=== PATIENT | female | born 1985 | race Two or more races ===

== ENCOUNTER 2025-05-09 16:07 | Emergency (ER) | payer SELFPAY ==
[~2025-05-09] VITALS: Ht 157.5 cm; Wt 95.8 kg
[2025-05-09 16:30] VITALS: BP 131/48; PULSE 100; RESP 14; TEMP 98.3; O2SAT 97
--- NOTE | 2025-05-09 16:42 | ED.PDOC ---
History of Present Illness EXP HPI Comments This is a 40 year old female presenting to the ED with chief complaint of post exposure. 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 Patient relays that the patient has no history except for autism. Patient denies any active bleeding at this time. Chief Complaint: Post Exposure Time Seen by MD: 16:40 Reviewed Notes: Nurses Notes, Medications, Allergies Allergies: Coded Allergies: NO KNOWN ALLERGIES (Unverified , 05/09/25) Information Source: Patient Mode of Arrival: Ambulatory Severity: Mild Severity Needlestick: Other (Mild) Timing: Minutes Duration: Since onset Prehospital treatment: None Location: Broken skin Exposed to: Blood Exposed by: Needlestick If needlestick: Gauge Treatment prior to arrival: Washing Source information: None Patient information: None Past Medical History PAST MEDICAL HISTORY: Denies Surgical History: Cholecystectomy, , Hysterectomy 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 History Family History Family History: Reviewed,noncontributory to illness Social History Smoker: Non-Smoker Alcohol: Denies ETOH Use Drugs: Denies Drug Use Lives In: Home Constitutional: denies: chills, diaphoresis, fatigue, fever, malaise, sweats, weakness, others EENTM: denies: blurred vision, double vision, ear bleeding, ear discharge, ear drainage, ear pain, ear ringing, eye pain, eye redness, hearing loss, mouth pain, mouth swelling, nasal discharge, nose bleeding, nose congestion, nose pain, photophobia, tearing, throat pain, throat swelling, voice changes, others Respiratory: denies: cough, hemoptysis, orthopnea, SOB at rest, shortness of breath, SOB with excertion, stridor, wheezing, others Cardiovascular: denies: chest pain, dizzy spells, diaphoresis, Dyspnea on exertion, edema, irregular heart beat, left arm pain, lightheadedness, palpitations, PND, syncope, others Gastrointestinal: denies: abdomen distended, abdominal pain, blood streaked bowels, constipated, diarrhea, dysphagia, difficulty swallowing, hematemesis, melena, nausea, poor appetite, poor fluid intake, rectal bleeding, rectal pain, vomiting, others Genitourinary: denies: abnormal vagina bleeding, burning, dyspareunia, dysuria, flank pain, frequency, hematuria, incontinence, pain, , vagina discharge, urgency, others Neurological: denies: dizziness, fainting, headache, left sided numbness, left sided weakness, numbness, paresthesia, pre-existing deficit, right sided numbness, right sided weakness, seizure, speech problems, tingling, tremors, weakness, others Musculoskeletal: denies: back pain, gout, joint pain, joint swelling, muscle pain, muscle stiffness, neck pain, others Integumetry: reports: others (Needle stick to left ring finger); denies: bruises, change in color, change in hair/nails, dryness, laceration, lesions, lumps, rash, wounds Allergic/Immunocompromised: denies: Difficulty Healing, Frequent Infections, Hives, Itching, others Hematologic/Lymphatic: denies: anemia, blood clots, easy bleeding, easy b ruising, swollen glands, others Endocrine: denies: excessive hunger, excessive sweating, excessive thirst, excessive urination, flushing, intolerance to cold, intolerance to heat, unexplained weight gain, unexplained weight loss, others Psychiatric: denies: anxiety, bipolar disorder, depression, hopeless, panic disorder, schizophrenia, sleepless, suicidal, others All Other Systems: Reviewed and Negative Physical Exam General Appearance: No Apparent Distress, Normal HEENT: Normal ENT Inspection, Pharynx Normal, TMs Normal Neck: Full Range of Motion, Non-Tender, Normal, Normal Inspection Respiratory: Chest Non-Tender, Lungs Clear, No Accessory Muscle Use, No Respiratory Distress, Normal Breath Sounds Cardiovascular: No Edema, No JVD, No Murmur, No Gallop, Normal Peripheral Pulses, Regular Rate/Rhythm Breast Exam: Deferred Gastrointestinal: No Organomegaly, Non Tender, No Pulsatile Mass, Normal Bowel Sounds, Soft Genitalia: Deferred Pelvic: Deferred Rectal: Deferred Extremities: No calf tenderness, Normal capillary refill, Normal inspection, Normal range of motion, Non-tender, No pedal edema Musculoskeletal : Apperance: Normal Neurologic: Alert, gardening manager II-XII nml as Tested, No Motor Deficits, Normal Affect, Normal Mood, No Sensory Deficits Cerebellar Function: Normal Reflexes: Normal Skin: Dry, Normal Color, Warm Lymphatic: No Adenopathy Was a procedure done? Was a procedure done?: No Differential Diagnosis (EXP) Differential Diagnosis: Body fluid exposure, Infect. Disease exposure, Needle stick exposure X-Ray, Labs, Meds, VS Vital Signs Date Time Temp Pulse Resp B/P (MAP) Pulse Ox O2 Delivery O2 Flow Rate FiO2 05/09/25 16:30 98.3 100 14 131/48 (75) 97 98.3 Time of 1ST Reevaluation: 17:39 Reevaluation 1ST: Unchanged Patient Education/Counseling: Diagnosis, Treatment Family Education/Counseling: No Family Present Comments pt was stuck by a used needle from a 7 year old, without infections. the stick is invisible now. pt is at low risk for infections and after discussing R/Bs of PEP, shared decision is to forego any PEP. post exposure labs are drawn and pt is stable to follow up with [facility] [place] Additional Information Reviewed patient's previous visit(s): None The following tests were ordered, and results were reviewed by me: Hep B, Hep C, HIV Additional information was gathered from interviewing the following independent historian: None I reviewed and agreed with the following test results read by other provider: None I discussed treatments and results with medical personnel and: Patient Comprehensive systems review obtained and negative except for what is stated in the HPI. Departure 1 Departure Time of Disposition: 16:54 Impression: Primary Impression: Needle stick injury of finger Disposition: 01 HOME / SELF CARE / HOMELESS Condition: Good Additional Instructions: follow up with [facility] [place] Discharged With: Self Critical Care Note Critical Care Time?: No Stability Stability form required: No Heart Score Heart Score: Heart Score Response (Comments) Value History N/A 0 EKG N/A 0 Age N/A 0 Risk Factors N/A 0 Troponin N/A 0 Total 0 I personally scribed for BENJAMIN CHOU MD ([email or web address]) on 05/09/25 at 16:42. Elec tronically submitted by Kee Wynne ([email or web address]). I personally scribed for BENJAMIN CHOU MD ([email or web address]) on 05/09/25 at 16:43. Electr onically submitted by Kee Wynne ([email or web address]). BENJAMIN CHOU MD May 09, 2025 16:42
--- NOTE | 2025-05-09 17:30 | DVH ---
Technique: Real-time ultrasound imaging of the abdomen was performed with grayscale and color Doppler . Indication: jaundice Comparison: None Findings: Liver measures 17.3 cm. It is increased in echogenicity and echotexture without focal mass. Portal v ein is normal in caliber and demonstrates normal hepatopetal flow. Gallbladder removed. The common bile duct measures 4 mm. No intrahepatic biliary ductal dilatation. The right kidney measures 12.6 cm. There is no hydronephrosis or sonographic evidence of nephrolithia sis. The pancreas is obscured/nonvisualized. The visualized portion of the IVC is unremarkable. Impression: Echogenic liver which can be seen with hepatic steatosis, cirrhosis. Hepatomegaly
[2025-05-10 12:41] LABS: Hepatitis B Surface Antigen Negative (Negative)
== END 2025-05-09 17:09 | disposition home or self-care (01) ==
LOC: ER 16:07
DX: S69.92XA Unspecified injury of left wrist, hand and finger(s), initial encounter (principal); Z90.49 Acquired absence of other specified parts of digestive tract; Z90.710 Acquired absence of both cervix and uterus; Z98.890 Other specified postprocedural states; W46.0XXA Contact with hypodermic needle, initial encounter; Y93.89 Activity, other specified; Y92.89 Other specified places as the place of occurrence of the external cause; Y99.0 Civilian activity done for income or pay
CPT/HCPCS: 36415; 76705; 86703; 86706; 86803; 87340